=== PATIENT | female | born 1980 | race Caucasian/White ===

== ENCOUNTER 2018-07-06 02:21 | Emergency (ER) | payer SELFPAY ==
[~2018-07-06] VITALS: Ht 160 cm; Wt 58.7 kg
[2018-07-06 02:27] VITALS: Ht 160 cm; Wt 58.7 kg
[2018-07-06 05:15] VITALS: BP 111/64
== END 2018-07-06 05:15 | disposition home or self-care (01) ==
LOC: ED 02:21
DX: S01.511A Laceration without foreign body of lip, initial encounter (principal); S61.307A Unspecified open wound of left little finger with damage to nail, initial encounter; Y04.0XXA Assault by unarmed brawl or fight, initial encounter; Y93.89 Activity, other specified; Y92.29 Other specified public building as the place of occurrence of the external cause; Y99.8 Other external cause status
CPT/HCPCS: 90715; J2001

== ENCOUNTER 2018-07-10 12:46 | Emergency (ER) | payer MEDICAID ==
[~2018-07-10] VITALS: Ht 160 cm; Wt 57.2 kg
[2018-07-10 13:01] VITALS: Ht 160 cm; Wt 57.2 kg
[2018-07-10 14:05] VITALS: BP 119/76
== END 2018-07-10 14:05 | disposition home or self-care (01) ==
LOC: ED 12:46
DX: S01.511D Laceration without foreign body of lip, subsequent encounter (principal); X58.XXXD Exposure to other specified factors, subsequent encounter

== ENCOUNTER 2018-07-12 17:23 | Emergency (ER) | payer MEDICAID ==
[~2018-07-12] VITALS: Ht 154.9 cm; Wt 56.2 kg
[2018-07-12 17:40] VITALS: Ht 154.9 cm; Wt 56.2 kg
[2018-07-12 19:35] VITALS: BP 115/87
== END 2018-07-12 19:35 | disposition home or self-care (01) ==
LOC: ED 17:23
DX: S01.511D Laceration without foreign body of lip, subsequent encounter (principal); Z48.02 Encounter for removal of sutures; X58.XXXD Exposure to other specified factors, subsequent encounter